=== PATIENT | male | born 1960 | race Caucasian/White ===

== ENCOUNTER 2023-05-28 13:26 | Outpatient (RCR) | payer OTHER, SELFPAY | END 2023-05-28 23:59 | disposition home or self-care (01) | LOC: RST 13:26 | PROVIDERS: ATTENDING PHYSICIAN Physical Medicine & Rehabilitation; PRIMARYCARE PHYSICIAN Family Medicine | DX: A86 Unspecified viral encephalitis (principal); R13.10 Dysphagia, unspecified | CPT/HCPCS: 97110 ==

== ENCOUNTER → 2023-08-19 08:04 | Outpatient (REF) | payer OTHER, SELFPAY | LOC: EMG 08:04 | PROVIDERS: ATTENDING PHYSICIAN Physician Assistant Surgical; FAMILY PHYSICIAN Family Medicine | DX: R20.0 Anesthesia of skin (principal); M25.511 Pain in right shoulder; M25.512 Pain in left shoulder | CPT/HCPCS: 95886; 95910 ==